=== PATIENT | female | born 1975 | race Two or more races ===

== ENCOUNTER 2019-07-17 04:55 | Inpatient (IN) | payer BC, OTHER ==
[2019-07-16 09:32] VITALS: BMI 22.2
--- NOTE | 2019-07-17 07:46 | HP ---
History & Physical Update - History History: No Change - Physical Physical: No Change - Assessment Assessment: No Change - Plan Plan: No Change (H&P bessie peraza , for supracervical hysterectomy, bilateral salpingectomy,)
[2019-07-17] MEDS ORDERED: ENOXAPARIN NA (PORCINE) 40 MG/0.4 ML DISP.SYRIN SQ SCH (10:00)
[2019-07-17] MEDS ORDERED: MIDAZOLAM HCL 2 MG/2 ML SINGLE DOSE VIAL ONE ×2 (12:34)
[2019-07-17] MEDS ORDERED: PROPOFOL 20 ML ONE (13:39)
[2019-07-17] MEDS ORDERED: LIDOCAINE HCL/PF 2% SDV 5ML VIAL ONE (13:39)
[2019-07-17] MEDS ORDERED: fentaNYL CITRATE 250 MCG/5 ML VIAL ONE (13:39)
[2019-07-17] MEDS ORDERED: ROCURONIUM BROMIDE 50 MG/5 ML SYRINGE ONE (13:39)
[2019-07-17] MEDS ORDERED: ceFAZolin SODIUM 1 GM VIAL ONE (13:54)
[2019-07-17] MEDS ORDERED: ceFAZolin 2 GRAM PREMIX BAG IVPB ONE (13:55)
[2019-07-17] MEDS ORDERED: DEXAMETHASONE SOD PHOSPHATE 4 MG/1 ML VIAL ONE (14:04)
[2019-07-17] MEDS ORDERED: GLYCOPYRROLATE 0.2 MG/1 ML VIAL ONE (14:42)
[2019-07-17] MEDS ORDERED: NEOSTIGMINE METHYLSULFATE 0.5 MG/ML - 10 ML MDV ONE (14:42)
[2019-07-17] MEDS ORDERED: PROMETHAZINE HCL 25 MG/1 ML VIAL IVPB PRN (15:41)
[2019-07-17] MEDS ORDERED: ONDANSETRON 4 MG/2 ML VIAL IVPUSH PRN ×2 (15:41→15:50)
[2019-07-17] MEDS ORDERED: IBUPROFEN 800 MG/8 ML IJ IVPB PRN ×2 (15:41→15:50)
[2019-07-17] MEDS ORDERED: LACTATED RINGERS SOLUTION 1,000 ML IV SCH (15:45)
[2019-07-17] MEDS ORDERED: IBUPROFEN 600 MG TABLET (FP) PO PRN (15:50)
[2019-07-17] MEDS ORDERED: oxyCODONE HCL 5 MG TABLET PO PRN ×2 (15:50→15:54)
[2019-07-17] MEDS ORDERED: ELECTROLYTE-148 SOLN 1,000 ML IV SCH (16:00)
--- NOTE | 2019-07-17 16:00 | OP ---
Operative Note - Note: Operative Date: 07/17/19 Pre-Operative Diagnosis: menometrorrhagia , pelvic pain, fibroid uterus Operation: supracervical abdominal hysterectomy. bilateral salpingectomy Findings: uterus with multiple myomas Surgeon: Tiburcio Chatterjee Structurer: Taran Jin Anesthesiologist/CHIEF SUPPLY CHAIN OFFICER: Jewell Hilton Anesthesia: General Specimens Removed: uterus, both tubes Estimated Blood Loss (mls): 150 Drains & Tubes with Location: quinteros Drains, Volume Out (mls): 75 Blood Volume Replaced (mls): 0 Fluid Volume Replaced (mls): 1,000 Operative Report Dictated: Yes
[2019-07-17] MEDS ORDERED: HYDROmorphone *PCA* 10MG/50ML DISP.SYRIN ONE (16:07)
[2019-07-17] MEDS: HYDROmorphone *PCA* 10MG/50ML DISP.SYRIN PCA SCH (16:45)
--- NOTE | 2019-07-17 16:49 | OP ---
DATE OF OPERATION: 07/17/2019 PREOPERATIVE DIAGNOSIS: Menometrorrhagia, pelvic pain, fibroid uterus. POSTOPERATIVE DIAGNOSIS: Menometrorrhagia, pelvic pain, fibroid uterus. PROCEDURE PERFORMED: Supracervical abdominal hysterectomy and bilateral salpingectomy. SURGEON: Tiburcio Chatterjee MD ENVIRONMENTAL HEALTH SAFETY ENGINEER: FRITZ Campos (No physician was available to assist.) ESTIMATED BLOOD LOSS: 150 mL. ANESTHESIA: General. ANESTHESIOLOGIST: Jewell Hilton M.D. DESCRIPTION OF PROCEDURE: The patient was taken to the operating room and had adequate general anesthesia. The abdomen and perineum were prepped and draped. A Perry catheter was inserted. A Pfannenstiel abdominal skin incision was made over the previous incision. The abdominal wall was cut layer by layer until the peritoneum was exposed and incised. Upon entering the abdominal cavity, there was a uterus with multiple fibroids. The bladder was adherent to the anterior lower uterine segment from the previous surgery. At this time the upper abdomen was checked and was normal. The bowels were packed away. Both round ligaments were identified and grasped with bipolar cautery, cauterized and cut. The a bladder flap was developed with Metzenbaum scissors, and the bladder was pushed down. Then both tubes were grasped with a [employer] clamp and cauterized along the mesosalpinx and both tubes were removed. Then a hole was made into the broad ligament. Then a Janelle clamp was placed at the cornual region of the uterus. Ovaries were severed from the uterus with Lim scissors. Then the Janelle clamps were replaced with ligature suture of 2-0 Vicryl and then with 0 Vicryl ties bilaterally. At this time the bladder was further pushed down. The uterine arteries were identified bilaterally, clamped with Janelle clamps, cut, and the clamp replaced with 0 Vicryl suture bilaterally. The paracervical area was grasped with a Janelle clamp, cut and the camp was replaced with 0 Vicryl suture bilaterally. At this time the specimen was removed above the cervix. Endocervix was cauterized, and then the cervix was sutured at each angle with interrupted suture of 2-0 Vicryl. Then the cervix was closed with continuous suture of 2-0 Vicryl. Hemostasis was established. No active bleeding was seen. The pelvic cavity was irrigated several times. The pelvic floor was reperitonealized with 3-0 Vicryl continuous suture. Then all the lap, sponge and instrument counts were closed. The peritoneum was closed with 0 Vicryl continuous suture. The muscles were brought together with interrupted suture of 0 Vicryl. The fascia was closed with 0 Vicryl continuous suture, the subcutaneous fat with interrupted suture of 2-0 Vicryl, and the skin was closed with 3-0 Vicryl continuous subcuticular suture. The patient tolerated the procedure well, and left the OR in good condition. Shilpi [id number]
[2019-07-18] MEDS ORDERED: MAGNESIUM HYDROX 2400MG/30ML ORAL SUSPENSION 30 ML CUP PO ONE (08:03)
--- NOTE | 2019-07-18 08:39 | PN ---
Progress Note (short form) - Note Progress Note: Anesthesia POD#1 S/P Abdominal Hysterectomy and bilateral salpingectomy under GA,TAP block and LEAN ENGINEER VSS, moderate pain,feels nauseous,using LEAN ENGINEER, started fluids by mouth. getting Zofran for nausea. A/P Dilaudid LEAN ENGINEER can be discontinued today and switched to oral meds. No other complications to anesthesia seen. Jewell Hilton MD.
[2019-07-18] MEDS ORDERED: PCA PUMP KEY 1 EACH EACH ONE (08:57)
[2019-07-18 09:33] LABS: HEMATOCRIT 30.6 % (32.4-45.2); HEMOGLOBIN 10.5 GM/dL (10.7-15.3); MCH 30.8 pg (25.7-33.7); MCHC 34.2 g/dl (32.0-36.0); MEAN CELL VOLUME 90.1 fl (80-96); MEAN PLT VOLUME 8.6 fl (7.5-11.1); PLATELET COUNT 269 K/MM3 (134-434); RDW 13.3 % (11.6-15.6); WHITE BLOOD COUNT 7.6 K/mm3 (4.0-10.0)
[2019-07-18] MEDS ORDERED: PATIENT'S OWN MEDICATION (NON-FORMULARY) (Cyclosporine [Restasis] 1 EACH) OP SCH (10:00)
[2019-07-18] MEDS ORDERED: ENOXAPARIN NA (PORCINE) 40 MG/0.4 ML DISP.SYRIN SQ SCH (10:00)
[2019-07-18 10:02] LABS: BLOOD UREA NITROGEN 10.4 mg/dL (7-18); CALCIUM 7.6 mg/dL (8.5-10.1); CREATININE 0.4 mg/dL (0.55-1.3); POTASSIUM 4.1 mmol/L (3.5-5.1)
[2019-07-18 14:03] VITALS: BP 104/60; PULSE 88; TEMP 98.2
[2019-07-18] MEDS: HYDROmorphone *PCA* 10MG/50ML DISP.SYRIN PCA SCH (15:07)
--- NOTE | 2019-07-21 21:06 | DS ---
Physical Exam-[facility] Vital Signs: Vital Signs Temperature 98.2 F 07/18/19 14:00 Pulse Rate 88 07/18/19 14:00 Respiratory Rate 18 07/18/19 14:00 Blood Pressure 104/60 07/18/19 14:00 O2 Sat by Pulse Oximetry (%) 98 07/18/19 08:45 Constitutional: Yes: Well Nourished, No Distress, Calm Eyes: Yes: WNL, Conjunctiva Clear, EOM Intact HENT: Yes: WNL, Atraumatic, Normocephalic Neck: Yes: WNL Cardiovascular: Yes: WNL Respiratory: Yes: WNL Gastrointestinal: Yes: WNL Renal/: Yes: WNL Vaginal Exam: Yes: Normal Breast(s): Yes: WNL Musculoskeletal: Yes: WNL Extremities: Yes: WNL Integumentary: Yes: WNL Wound/Incision: Yes: Clean/Dry, Well Approximated, Sutures Intact, Steri Strips Neurological: Yes: WNL, Alert, Oriented ...Motor Strength: WNL Psychiatric: Yes: WNL, Alert, Oriented Labs: CBC, BMP 07/18/19 08:35 07/18/19 08:35 Discharge Summary Problems reviewed: Yes Reason For Visit: PELVIC PAIN fibroid uterus, menometrorrhagia. Procedures: Principal: supracervical abdominal hysterectomy Other Procedures: bilateral salpingectomy Hospital Course: no complication Plan of Treatment: pain management Condition: Good - Instructions Diet, Activity, Other Instructions: regular diet, no intercourse , follow up office 2 weeks if fever, pain, heavy vaginal bleeding call md Referrals: Tiburcio Chatterjee MD [Staff Physician] - Disposition: HOME - Home Medications Comprehensive Discharge Medication List: Ambulatory Orders Cyclosporine [Restasis] 1 each OP DAILY 07/16/19 Ibuprofen [Motrin -] 600 mg PO TID #90 tablet 07/17/19 Oxycodone HCl/Acetaminophen [Percocet 5-325 mg Tablet] 1 tab PO Q6H PRN #20 tablet MDD 4 07/17/19
--- NOTE | 2019-07-22 09:12 | PATH ---
Surgical Pathology Report Patient Name: ANA BRANTLEY [facility]. Rec. #: [id number] /Age/Gender: 1975 (Age: 44) / F Account: [id number] Location: [facility] OBS/MANAGER SALES AND MARKETING Taken: 07/17/2019 Received: 07/18/2019 Reported: 07/22/2019 Physicians: Tiburcio Chatterjee M.D. Specimen(s) Received UTERUS AND BILATERAL FALLOPIAN TUBES Clinical History Menometrorrhagia, fibroid uterus Final Diagnosis UTERUS, BILATERAL FALLOPIAN TUBES, ABDOMINAL HYSTERECTOMY AND BILATERAL SALPINGECTOMY: 143 G UTERUS. LEIOMYOMA, INTRAMURAL. PROLIFERATIVE ENDOMETRIUM WITH MILD CHRONIC ENDOMETRITIS. PORTION OF ENDOCERVIX WITHOUT SIGNIFICANT PATHOLOGIC FINDINGS. FALLOPIAN TUBE WITH FOCAL ENDOSALPINGOSIS AND FOCAL FUSED PLICAE (INCLUDING FULL LUMINAL PORTION AND FIMBRIATED END). FALLOPIAN TUBE WITH FOCAL HYDROSALPINX (INCLUDING FULL LUMINAL PORTION AND FIMBRIATED END). Electronically Signed Lola Haq M.D. Gross Description Received in formalin labeled "bilateral fallopian tubes and uterus," is a 143 g supracervically amputated uterus with no attached adnexa. The bilateral, fimbriated fallopian tubes are separately received within the same container. The specimen measures 8 cm from superior to inferior, 6 cm from left to right and 5.8 cm from anterior to posterior. The serosa is owusu-silvestre and smooth. The endometrial cavity measures 5.7 cm in length and 1.7 cm from cornu to cornu. The endometrium is owusu-red and measures up to 3 cm in thickness. The myometrium displays a 2.8 cm in greatest dimension intramural nodule. The cut surface of the nodule is owusu and rubbery with diffuse degeneration. The remaining myometrium is owusu-pink and measures up to 3 cm in thickness. The undesignated fallopian tubes measure 1.6 and 2.8 cm in length. The outer surfaces are torres purple and smooth. Sectioning reveals unremarkable lumen. Subsystems Engineer sections are submitted in 11 cassettes as follows: 1-cervical stump margin of resection; 4-5-pwrsibruscemub; 2-7-ussxqbfxse nodule; 8-shorter fallopian tube fimbria; 9-cross sections of shorter fallopian tube; 10-longer fallopian tube fimbria; 11-cross sections of longer fallopian tube. 07/18/2019 [facility]07/18/2019
== END 2019-07-18 16:10 | disposition home or self-care (01) | DRG 743 ==
LOC: JSAMEDAYSX 04:55 → J3W 18:33
PROVIDERS: ADMIT Obstetrics & Gynecology; ATTEND Obstetrics & Gynecology
PROC: 0UT70ZZ Resection of Bilateral Fallopian Tubes, Open Approach (ICD-10-PCS; 2019-07-17)
PROC: 0UT90ZL Resection of Uterus, Supracervical, Open Approach (ICD-10-PCS; principal; 2019-07-17 14:00)
DX: D25.9 Leiomyoma of uterus, unspecified (principal); N92.1 Excessive and frequent menstruation with irregular cycle
CPT/HCPCS: 36415; 80048; 84703; 85027; 86850; 86900; 86901; 86922; 88307-TC; 94010; 94760